=== PATIENT | female | born 1990 | race African-American/Black ===

== ENCOUNTER 2020-12-20 20:06 | Emergency (ER) | payer MEDICAID ==
[~2020-12-20] VITALS: Ht 154.9 cm; Wt 70.4 kg
[2020-12-20 21:30] VITALS: BP 127/82
== END 2020-12-21 00:13 | disposition left against medical advice (07) ==
LOC: ER 20:06
DX: Z04.1 Encounter for examination and observation following transport accident (principal); Z53.21 Procedure and treatment not carried out due to patient leaving prior to being seen by health care provider